=== PATIENT | male | born 1950 | race Caucasian/White ===

== ENCOUNTER 2020-08-23 10:55 | Outpatient (REF) | payer MEDICARE, OTHER, SELFPAY ==
--- NOTE | 2020-08-23 12:47 | MHC.AU.ANO ---
Adult Audiological Evaluation Date of Visit: 08/23/20 Reason for Appointment: Patient reports that he has been experiencing tinnitus for the last 6 months or so. He will either hear a ringing sound or a fan whirring sound. The tinnitus is constant, and he has not discovered anything that seems to make it better or worse. He also reports mild difficulty understanding speech in noisy environments, difficulty understanding people wearing face masks, and difficulty hearing his at home. Overall, however, he feels he hears and understands well in most circumstances. Does patient feel they have a hearing loss?: No Hearing Handicap Inventory: HHIE SCORE: 14 Based on HHIE score, patient has: Mild to moderate perceived hearing handicap Ear History: Ear Deformity: None Reported Recent Ear Drainage: None Reported Recent Ear Pain: None Reported Recent Ear Infections: None Reported Ear Infections in Childhood: None Reported History of Ear Wax Buildup: Both Ears Previous Ear Surgery: None Reported Bothersome Tinnitus/Ringing/Noises in Ears: Both Ears Ear used on the phone: Right Ear Blocked/Full Sensation in Ear(s): Both Ears History of occupational noise exposure?: No History: No Medical History: Medical History: Skin Cancer, Hypertension Medication List: Amitriptyline, Fluticasone nasal spray, Ibuprofen, Irbesartan, Pravastatin, Rifaximin, Low dose aspirin, Verapamil Otoscopy: Right Ear: Unremarkable Left Ear: Unremarkable Tympanometry: Tympanometry performed due to: To assess integrity of the middle ear system Right Ear: Normal Middle Ear System (Type A) Left Ear: Normal Middle Ear System (Type A) Acoustic Reflexes: Screening Ipsilateral Reflex Probe Right Ear: Screening Ipsilateral Reflex Present at 1000 Hz Probe Left Ear: Screening Ipsilateral Reflex Present at 1000 Hz Hearing Evaluation: Transducer(s) Used: Circumaural Headphones Method: Conventional Audiometry Stimuli Used: Pure Tones Right Ear: Description of Hearing: Mild to moderate sensorineural hearing loss Left Ear: Description of Hearing: Mild to moderate sensorineural hearing loss Speech Recognition Threshold (SRT): Method Used: Recorded Lists Stimuli Used: Spondee Words Right Ear: 40 dBHL Left Ear: 40 dBHL Word Discrimination: Method: Recorded Lists Word Lists Used: NU-6 Right Ear: 96% at 60 dBHL Left Ear: 92% at 60 dBHL Most Comfortable Level (MCL): Right Ear: 60 dBHL Left Ear: 60 dBHL QuickSIN: 4 dB SNR loss, suggesting mildly elevated difficulty hearing in noise Interpretation of Results: With this degree of hearing loss, people generally hear best in quiet environments when they are one-on-one and [id number]. Increased hearing difficulty and misunderstandings can be expected in the presence of background noise or when people are talking from a distance or from behind the listener. Recommendations: Audiological re-evaluation in one year. Patient feels that he is getting by well in most circumstances. Amplification may not yet be warranted. Communication strategies and tinnitus relief strategies were discussed. Diagnosis: Primary Diagnosis: H90.3 Bilateral Sensorineural Hearing Loss Services Performed: Comprehensive Audiological Evaluation (CPT 49641), Tympanometry (CPT 47126) Signature: Provider: Hiwot Mathews, CCC-A
--- NOTE | 2020-08-23 12:50 | MHC.AU.ANO ---
Adult Audiological Evaluation Date of Visit: 08/23/20 Reason for Appointment: Patient reports that he has been experiencing tinnitus for the last 6 months or so. He will either hear a ringing sound or a fan whirring sound. The tinnitus is constant, and he has not discovered anything that seems to make it better or worse. He also reports mild difficulty understanding speech in noisy environments, difficulty understanding people wearing face masks, and difficulty hearing his at home. Overall, however, he feels he hears and understands well in most circumstances. Hearing Handicap Inventory: HHIE SCORE: 14 Based on HHIE score, patient has: Mild to moderate perceived hearing handicap Ear History: Ear Deformity: None Reported Recent Ear Drainage: None Reported Recent Ear Pain: None Reported Recent Ear Infections: None Reported Ear Infections in Childhood: None Reported History of Ear Wax Buildup: Both Ears Previous Ear Surgery: None Reported Bothersome Tinnitus/Ringing/Noises in Ears: Both Ears Ear used on the phone: Right Ear Blocked/Full Sensation in Ear(s): Both Ears History of occupational noise exposure?: No History: No Medical History: Medical History: Skin Cancer, Hypertension Medication List: Amitriptyline, Fluticasone nasal spray, Ibuprofen, Irbesartan, Pravastatin, Rifaximin, Low dose aspirin, Verapamil Otoscopy: Right Ear: Unremarkable Left Ear: Unremarkable Tympanometry: Tympanometry performed due to: To assess integrity of the middle ear system Right Ear: Normal Middle Ear System (Type A) Left Ear: Normal Middle Ear System (Type A) Acoustic Reflexes: Screening Ipsilateral Reflex Probe Right Ear: Screening Ipsilateral Reflex Present at 1000 Hz Probe Left Ear: Screening Ipsilateral Reflex Present at 1000 Hz Hearing Evaluation: Transducer(s) Used: Circumaural Headphones Method: Conventional Audiometry Stimuli Used: Pure Tones Right Ear: Description of Hearing: Mild to moderate sensorineural hearing loss Left Ear: Description of Hearing: Mild to moderate sensorineural hearing loss Speech Recognition Threshold (SRT): Method Used: Recorded Lists Stimuli Used: Spondee Words Right Ear: 40 dBHL Left Ear: 40 dBHL Word Discrimination: Method: Recorded Lists Word Lists Used: NU-6 Right Ear: 96% at 60 dBHL Left Ear: 92% at 60 dBHL Most Comfortable Level (MCL): Right Ear: 60 dBHL Left Ear: 60 dBHL QuickSIN: 4 dB SNR loss, suggesting mildly elevated difficulty hearing in noise Interpretation of Results: With this degree of hearing loss, people generally hear best in quiet environments when they are one-on-one and [id number]. Increased hearing difficulty and misunderstandings can be expected in the presence of background noise or when people are talking from a distance or from behind the listener. Recommendations: Audiological re-evaluation in one year. Patient feels that he is getting by well in most circumstances. Amplification may not yet be warranted. Communication strategies and tinnitus relief strategies were discussed. Diagnosis: Primary Diagnosis: H90.3 Bilateral Sensorineural Hearing Loss Signature: Provider: Hiwot Mathews, CCC-A
== END 2020-08-23 10:56 | disposition home or self-care (01) ==
LOC: HO.SH 10:55
PROVIDERS: Visit Provider Physician Assistant
DX: H90.3 Sensorineural hearing loss, bilateral (principal)
CPT/HCPCS: 92557; 92567

== ENCOUNTER 2020-11-24 10:00 | Outpatient (RCR) | payer MEDICARE, OTHER, SELFPAY ==
[2020-10-06 10:02] VITALS: BP 139/76; PULSE 77
== END 2021-05-11 14:03 | disposition home or self-care (01) ==
LOC: HO.PT 10:00
PROVIDERS: PCP Internal Medicine; Visit Provider Physician Assistant
DX: M19.011 Primary osteoarthritis, right shoulder (principal)
CPT/HCPCS: 97110; 97112; 97140; 97162; 97530